=== PATIENT | female | born 1965 | race African-American/Black ===

== ENCOUNTER → 2020-05-30 | Outpatient (CLI) | payer OTHER ==
[~2020-05-30] MED LIST: ESTRADIOL 1 MG T1 M1 PO; FARXIGA10 MG PO; LEVOTHYROXIN0.088 MG PO; LISINOPRIL10 MG PO; MOBIC7.5 MG PO; PROGESTERONE100 MG PO; PROZAC20 MG PO; VICTOZA0.6 MG/0.1 SUBQ
== END ==
LOC: CAT 13:55 → BC 14:58
PROVIDERS: ATTEND Family Medicine
DX: Z13.6 Encounter for screening for cardiovascular disorders (principal); I25.10 Atherosclerotic heart disease of native coronary artery without angina pectoris; E78.00 Pure hypercholesterolemia, unspecified